=== PATIENT | male | born 1945 | race Caucasian/White ===

== ENCOUNTER 2018-10-28 16:07 | Observation (INO) | payer MEDICARE, OTHER ==
[2018-10-28] MEDS ORDERED: Sodium Chloride 0.9% 10 ML Syringe FLUSH PRN (16:15)
--- NOTE | 2018-10-28 19:00 | HP ---
CHIEF COMPLAINT: Hyperglycemia. HISTORY OF PRESENT ILLNESS: This is a 73-year-old with known history of dementia who has been living at home with the assistance of his children. His daughter does check on him and gives his shot and medications around 4:30 each day, but they are not sure how he has been eating. He states he is cooking for himself, but he is not always that hungry. He had lost some weight like 12 pounds with his Soliqua medication at his last visit due to some concerns about appetite and oral intake. We decreased the Soliqua, but now his blood sugars are quite high like in the 400s at times. He has no pain. He denies any breathing problems. He states he has no concerns. His lowest blood sugar was 109. They were all checked in the afternoon. A couple of times his meter even just read high. He denies that he is having any hallucinations, but his daughter and son state that he still is seeing people that are not there. The patient was very cooperative and pleasant, but said to them "no I am not." Family do want to transition him over to an assisted living, but they do not think that he will be cooperative with that. We had met and discussed the plan to admit for observation status due to hyperglycemia, which we are doing today and transition to assisted living tomorrow. ALLERGIES: List includes niacin, ADRIANE inhibitors, and tetanus. MEDICATIONS: List is reviewed. He takes all medications at 4:30 in the afternoon. 1. Aricept 5 mg. 2. Soliqua 30 units daily. 3. Metformin 2000 once a day. 4. Norvasc 10 mg daily. 5. Hydrochlorothiazide. 6. Losartan 100-25.5 daily. 7. Pravachol 40 mg daily. 8. Seroquel 12.5 daily. 9. Toprol 12.5 daily. 10.B12 1000 mcg daily. PAST MEDICAL HISTORY: Includes coronary artery disease. Did have chest pain and an CO back in 1995, but there were collaterals. He has not had any problems since. Essential hypertension, hyperlipidemia, mixed dementia. Even since 2017, trial of Namenda in early 2019 caused hallucinations, but they continued even after stopping. On Aricept now couple of years. Obesity, controlled type 2 diabetes with hyperglycemia, and neuropathy on long-term insulin use. SOCIAL HISTORY: The patient is . [place] He is a nonsmoker, nondrinker. His daughter does live nearby. He has another son in the [place] area and a daughter who lives out of state. 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 FAMILY HISTORY: His father is , he did have a heart attack and some heart disease. He had a sister who of diabetes and heart disease. Mother had arthritis problems. REVIEW OF SYSTEMS: General: The patient offers no concerns. Did gain though 4 pounds in 1 month. HEENT: No sore throat. Cardiac: No chest pain. No palpitations. Respiratory: No cough. No shortness of breath. : No dysuria. GI: No abdominal pain, constipation, or diarrhea. Otherwise, all systems reviewed and found to be negative unless otherwise stated. PHYSICAL EXAMINATION: Vital Signs: The patient was seen also at [facility]. His weight there was 83.4 kg. His blood pressure was 110/52, respiratory rate 16, O2 of 96 on room air, pulse 83, blood pressure 110/52, and temperature 98.6. General: He is in no acute distress. Heart: Regular rate and rhythm. S1, S2 without murmur. Lungs: Lung sounds are clear to auscultation bilaterally without crackles or wheezes. Abdomen: Nondistended, nontender. Extremities: Warm and dry. No edema. Mental Status: He is alert, he is orientated x3. In asking his memory questions, the patient cannot remember what he ate or if he had anything to eat today. He looks to his daughter and son to answer more complex questions. Other questions he will just answer with a yes or no. LABORATORY DATA: Lab work done through the clinic today did show urine test negative for infection. He had a few bacteria noted. A1c 7.3, glucose 153, BUN 16, creatinine 1.06, sodium 140, potassium 4.2, chloride 103, bicarb 27. ASSESSMENT AND PLAN: 1. Mixed dementia with hallucinations. He is not currently having any behavioral disturbances, but concern is that he might not transition to assisted living with family. However, he has been agreeable today and hopefully can transition safely to assisted living tomorrow. 2. Hyperglycemia. Diabetes is actually under better control, but we need to do some q.i.d. checks and make sure he has good oral intake because he would be at risk for lows. 3. Coronary artery disease, stable. He is not having any angina. 4. Essential hypertension, controlled, on current medications. 5. Recent renal insufficiency. Kidney function has actually improved. We will hold off on any IV fluids. 6. Hallucinations. We will continue with Seroquel. He already got a dose today, but we will have another dose available tonight. 7. Hyperlipidemia. He will continue home medications. PLAN: At this point, the patient is admitted for observation status with anticipation to transition to assisted living tomorrow. Mortician Investigator are aware. He is a code level 1. He is in need of just a short-term stay, so no DVT prophylaxis was ordered. MKA: 10/28/2018 17:12:28 MODL: 10/28/2018 18:50:47 /[id number]
[2018-10-28] MEDS ORDERED: QUEtiapine 25 MG Tab PO SCH (20:00)
[2018-10-29] MEDS ORDERED: INSULIN GLARGINE SQ SCH (08:00)
[2018-10-29] MEDS ORDERED: amLODIPine 5 MG Tab PO SCH (08:00)
[2018-10-29] MEDS ORDERED: LIXISENATIDE SQ SCH (08:00)
[2018-10-29] MEDS ORDERED: Losartan 50 MG Tab PO SCH (08:00)
[2018-10-29] MEDS ORDERED: Hydrochlorothiazide 12.5 MG Cap PO SCH (08:00)
[2018-10-29] MEDS ORDERED: Cyanocobalamin (Vitamin B12) 1,000 MCG Tab PO SCH (08:00)
[2018-10-29] MEDS ORDERED: Metoprolol Succinate 25 MG Tab.ER PO SCH (08:00)
[2018-10-29] MEDS ORDERED: QUEtiapine 25 MG Tab PO PRN (09:09)
[2018-10-29] MEDS ORDERED: Pravastatin Sodium 40 MG PO SCH (16:30)
[2018-10-29] MEDS ORDERED: Donepezil 5 MG Tab PO SCH (20:00)
--- NOTE | 2018-10-30 01:42 | DISCH ---
PRIMARY DISCHARGE DIAGNOSIS: Type 2 diabetes, controlled with hyperglycemia, on long-term insulin therapy, with neuropathy. SECONDARY DISCHARGE DIAGNOSES: 1. Mixed dementia with hallucinations. 2. Coronary artery disease, stable without angina. 3. Essential hypertension, controlled. 4. Hyperlipidemia. REASON FOR ADMISSION: On the date of admission, this 73-year-old male came into the clinic with his son and daughter. He had been having some higher blood sugars at home up to the 400 and the machine reading high since decreasing his Soliqua, which was done due to decreased appetite, poor oral intake. He has dementia. His family checks on him and gives him his medications every day around 4:30. They are not sure what he is always eating. The patient no longer drives. He did become angry with his family about that last year. They are hoping to transition him into assisted living, but he needs to have blood sugar stabilized and be able to give himself his shot. HOSPITAL COURSE: The patient was admitted. Blood sugars here were monitored and actually were quite excellent at 106 through 143. He was eating well. He was up wondering, stating he needed to get home and feed the cows. He did not know where he was at. He did finally remember that he was in the town [facility]. He states he recognized me, but could not give me his name. He did have the injection, he was able to give himself, but the nurse did have him push the button on the Soliqua this morning. Otherwise, cognitive eval was requested and is pending at the time of this discharge; however, if it is not completed, we do know that he already does meet criteria for needing 24-hour supervision. On discharge, the patient will have home health. The [id number] encounter occurred with me today on 10/29/2018. Primary need for home health is really for nursing, for teaching and assessments of giving daily injections at assisted living. This is needed due to uncontrolled diabetes. The patient is homebound due to his cognitive impairment. He really does require the assist of another person to leave his home. I will periodically review his plan of care. PHYSICAL EXAMINATION: Vital Signs: His discharge exam did include vitals of temperature 97; pulse 66; blood pressure 134/64; respiratory rate 20; and O2 of 92% on room air, previously 98%. General: He was in no acute distress. Heart: Regular rate and rhythm noted. Lungs: Lung sounds were clear to auscultation bilaterally without crackles or wheezes. Abdomen: Nondistended, nontender. Extremities: Warm and dry. No edema. Mental Status: On orientation questions, the patient was completely disoriented this morning; unable to answer the season, he said it was spring. He also did not remember any of the events from yesterday, being in the clinic and being admitted. He was polite, cooperative, easily redirected. DISCHARGE PLANS AND INSTRUCTIONS: He is going over to [facility] for further cares. In the next week, he will have q.i.d. Accu-Cheks to get a better idea of his blood sugars. He will be on his same medications with the exception of his Seroquel that will be available t.i.d. p.r.n. if needed for anxiety. All medications will be shifted from 4:00 p.m. to a.m. or p.m. dosing. MKA: 10/29/2018 10:13:44 MODL: 10/30/2018 01:37:12 /[id number]
[2018-10-30] MEDS ORDERED: amLODIPine 10 MG Tab PO SCH (08:00)
== END 2018-10-29 13:45 | disposition home health service (06) ==
LOC: VM.MS 16:07
PROVIDERS: ADMIT Internal Medicine; ATTEND Internal Medicine
DX: E11.65 Type 2 diabetes mellitus with hyperglycemia (principal); E11.40 Type 2 diabetes mellitus with diabetic neuropathy, unspecified; F03.90 Unspecified dementia, unspecified severity, without behavioral disturbance, psychotic disturbance, mood disturbance, and anxiety; R44.2 Other hallucinations; I25.10 Atherosclerotic heart disease of native coronary artery without angina pectoris; I10 Essential (primary) hypertension; E78.5 Hyperlipidemia, unspecified; Z88.7 Allergy status to serum and vaccine; Z88.8 Allergy status to other drugs, medicaments and biological substances; Z79.4 Long term (current) use of insulin; Z79.899 Other long term (current) drug therapy
CPT/HCPCS: 82962; A9270; G0378

== ENCOUNTER 2020-12-30 05:25 | Inpatient (IN) | payer MEDICARE, OTHER ==
[2020-12-30] MEDS ORDERED: Sodium Chloride 0.9% 10 ML Syringe FLUSH PRN (05:46)
[2020-12-30] MEDS ORDERED: Sodium Chloride 0.9% 1,000 ML IV ONE (05:46)
[2020-12-30] MEDS ORDERED: cefTRIAXone 2 GM Vial IV ONE (05:46)
[2020-12-30] MEDS ORDERED: Acetaminophen 650 MG Supp RECTAL ONE (05:50)
--- NOTE | 2020-12-30 06:11 | EDM.PDOC ---
ED HPI GENERAL MEDICAL PROBLEM - General Chief Complaint: Fever Stated Complaint: Fever, hypoxia Time Seen by Provider: 12/30/20 05:40 Source of Information: Reports: EMS, Intermediate Records History Limitations: Reports: Altered Mental Status - History of Present Illness INITIAL COMMENTS - FREE TEXT/NARRATIVE: Adiel is a 75 year old from the [facility] who presents per EMS with fever, hypoxia. Staff noted a fever earlier this evening of 104. Gave him tylenol but now continues to have a temp of 103. Does have Alzheimer's Dementia, is lethargic so does not answer any questions here. Staff from the long term did not report any vomiting, diarrhea, or cough. Onset: Today Duration: Hour(s):, Constant Location: Reports: Generalized Associated Symptoms: Reports: Confusion (chronic in nature), Fever/Chills, Malaise. Denies: Cough, Nausea/Vomiting, Shortness of Breath Treatments BODY BUILDER: Reports: Acetaminophen - Related Data Allergies Allergy/AdvReac Type Severity Reaction Status Date / Time ADRIANE Inhibitors Allergy Other Verified 12/30/20 06:26 niacin Allergy Hives Verified 12/30/20 06:26 tetanus immune globulin Allergy Rash Verified 12/30/20 06:26 Home Meds: Home Meds Cyanocobalamin (Vitamin B-12) [Vitamin B-12] 1,000 mcg PO DAILY 10/28/18 [History] Donepezil [Aricept] 10 mg PO BEDTIME 10/28/18 [History] Insulin Glargine/Lixisenatide [Soliqua 100 Unit-33 Mcg/ml Pen] 30 units SQ DAILY 10/28/18 [History] Losartan/Hydrochlorothiazide [Hyzaar 100-25 Tablet] 0.5 tab PO DAILY 10/28/18 [History] Metoprolol Succinate [Toprol Xl] 12.5 mg PO DAILY 10/28/18 [History] Pravastatin [Pravachol] 40 mg PO DAILY 10/28/18 [History] QUEtiapine [SEROquel] 12.5 mg PO BEDTIME 10/28/18 [History] amLODIPine [Norvasc] 10 mg PO DAILY 10/28/18 [History] metFORMIN [Glucophage XR] 2,000 mg PO DAILY 10/28/18 [History] QUEtiapine [SEROquel] 12.5 mg PO TID PRN #30 tablet 10/29/18 [Rx] Past Medical History HEENT History: Reports: None Cardiovascular History: Reports: [place] Gastrointestinal History: Reports: None Genitourinary History: Reports: None Musculoskeletal History: Reports: None Neurological History: Reports: Alzheimers Disease Other Neuro History: dementia Psychiatric History: Reports: None Endocrine/Metabolic History: Reports: Diabetes, Type II Dermatologic History: Reports: None - Past Surgical History HEENT Surgical History: Reports: Tonsillectomy Social & Family History - Tobacco Use Tobacco Use Status *Q: Unknown Ever Used Tobacco - Caffeine Use Caffeine Use: Reports: Coffee ED ROS GENERAL - Review of Systems Review Of Systems: Unable To Obtain Reason Not Obtained: patient lethargic, has dementia Constitutional: Reports: Fever, Weakness GI/Abdominal: Denies: Diarrhea, Vomiting ED EXAM, SEPSIS - Physical Exam Exam: See Below Exam Limited By: Altered Mental Status General Appearance: WD/WN, No Apparent Distress, Lethargic Ears: Normal External Exam, Normal TMs Nose: Normal Inspection, Normal Mucosa, No Blood Throat/Mouth: Normal Inspection, Other (mucous membranes are dry) Head: Normocephalic Neck: Normal Inspection, Supple, Non-Tender Respiratory/Chest: Decreased Breath Sounds, Other (tachypnea) Cardiovascular: Tachycardia GI/Abdominal Exam: Normal Bowel Sounds, Non-Tender, Other (semi-firm) Extremities: Normal Inspection, No Pedal Edema Neurological: Disoriented Skin: Warm, Dry Course - Vital Signs Last Recorded V/S: Last Vital Signs Temp 104.8 F H 12/30/20 06:05 Pulse Resp BP Pulse Ox - Orders/Labs/Meds Orders: Active Orders 24 hr Category Date Time Status Patient Status Manage Transfer [TRANSFER] Routine ADT 12/30/20 08:12 Active Blood Pressure Mgt: Sepsis [RC] Q15MX2 Care 12/30/20 05:47 Active EKG Documentation Completion [RC] STAT Care 12/30/20 05:46 Active CULTURE BLOOD [BC] Stat Lab 12/30/20 06:13 Received CULTURE BLOOD [BC] Stat Lab 12/30/20 06:17 Received LACTIC ACID [CHEM] Stat Lab 12/30/20 09:15 Ordered REFLEX LACTIC ACID YES OR NO [CHEM] Routine Lab 12/30/20 06:51 Received Azithromycin [Zithromax] 500 mg Med 12/30/20 08:05 Active Sodium Chloride 0.9% [Normal Saline (AdvBag)] 250 ml IV STAT Sodium Chloride 0.9% [Normal Saline] 1,000 ml Med 12/30/20 06:30 Active IV ASDIRECTED Sodium Chloride 0.9% [Saline Flush] Med 12/30/20 05:46 Active 10 ml FLUSH ASDIRECTED PRN Blood Culture x2 Reflex Set [OM.PC] Stat Ot 12/30/20 05:47 Ordered Saline Lock Insert [OM.PC] Stat Ot 12/30/20 05:47 Ordered Severe Sepsis Onset Time [OM.PC] Stat Ot 12/30/20 05:47 Ordered Medication Orders Sodium Chloride (Normal Saline) 1,000 mls @ 150 mls/hr IV ASDIRECTED DAWOOD Last Admin: 12/30/20 06:15 Dose: 150 mls/hr Documented by: [email or web address] Azithromycin 500 mg/ Sodium (Chloride) 250 mls @ 250 mls/hr IV STAT ONE Stop: 12/30/20 09:04 Sodium Chloride (Sodium Chloride 0.9% 10 Ml Syringe) 10 ml FLUSH ASDIRECTED PRN PRN Reason: Keep Vein Open Labs: Laboratory Tests 12/30/20 12/30/20 12/30/20 Range/Units 06:05 06:13 06:13 WBC 4.6 (4.0-10.0) x10^3/uL RBC 5.26 (4.5-6.0) x10^6/uL Hgb 15.2 (14.0-18.0) g/dL Hct 44.7 (40.0-52.0) % MCV 85.0 (78.0-93.0) fL MCH 28.9 (26.0-32.0) pg MCHC 34.0 (32.0-36.0) g/dL RDW Coeff of Ramon 14.0 (10.0-15.0) % Plt Count 239 (130-400) x10^3/uL Add Manual Diff Yes Neutrophils % (Manual) 58 (50-80) % Band Neutrophils % 18 H (0-6) % Lymphocytes % (Manual) 18 L (25-50) % Monocytes % (Manual) 6 (2-11) % Absolute Neutrophils 3.5 (1.8-7.7) x10^3/uL Lymphocytes # (Manual) 0.8 L (1.0-4.8) x10^3/uL Monocytes # (Manual) 0.3 (0.0-0.8) x10^3/uL Platelet Estimate Adequate Sodium 149 H (136-145) mmol/L Potassium 3.8 (3.5-5.1) mmol/L Chloride 112 H (98-107) mmol/L Carbon Dioxide 22 (21-32) mmol/L Anion Gap 18.8 H (5-15) mmol/L BUN 56 H (7-18) mg/dL Creatinine 2.7 H (0.70-1.30) mg/dL Est Cr Clr Drug Dosing TNP Estimated GFR (MDRD) 23 Glucose 273 H (70-99) mg/dL Lactic Acid (0.4-2.0) mmol/L Calcium 7.6 L (8.5-10.1) mg/dL Corrected Calcium 8.6 (8.5-10.1) mg/dL Total Bilirubin 0.6 (0.2-1.0) mg/dL AST 11 L (15-37) U/L ALT 15 L (16-63) U/L Alkaline Phosphatase 67 (46-116) U/L C-Reactive Protein 9.3 H (<=0.9) mg/dL Total Protein 5.9 L (6.4-8.2) g/dL Albumin 2.7 L (3.4-5.0) g/dL Globulin 3.2 Albumin/Globulin Ratio 0.84 Procalcitonin (0.1-0.50) ng/mL Urine Color (YELLOW) Urine Appearance (CLEAR) Urine pH (5.0-8.0) Ur Specific [place] Urine Protein (NEGATIVE) mg/dL Urine Glucose (UA) (NEGATIVE) mg/dL Urine Ketones (NEGATIVE) mg/dL Urine Occult Blood (NEGATIVE) Urine Nitrite (NEGATIVE) Urine Bilirubin (NEGATIVE) Urine Urobilinogen (0.2) EU/dL Ur Leukocyte Esterase (NEGATIVE) Urine RBC (NOT SEEN) /HPF Urine WBC (NOT SEEN) /HPF Ur Squamous Epith Cells (NOT SEEN) /HPF Urine Bacteria (NOT SEEN) /HPF Urine Mucus (NOT SEEN) /LPF Influenza Type A RNA Negative (NEGATIVE) Influenza Type B RNA Negative (NEGATIVE) SARS-CoV-2 RNA (MARY) Negative (NEGATIVE) 12/30/20 12/30/20 12/30/20 Range/Units 06:13 06:13 06:15 WBC (4.0-10.0) x10^3/uL RBC (4.5-6.0) x10^6/uL Hgb (14.0-18.0) g/dL Hct (40.0-52.0) % MCV (78.0-93.0) fL MCH (26.0-32.0) pg MCHC (32.0-36.0) g/dL RDW Coeff of Ramon (10.0-15.0) % Plt Count (130-400) x10^3/uL Add Manual Diff Neutrophils % (Manual) (50-80) % Band Neutrophils % (0-6) % Lymphocytes % (Manual) (25-50) % Monocytes % (Manual) (2-11) % Absolute Neutrophils (1.8-7.7) x10^3/uL Lymphocytes # (Manual) (1.0-4.8) x10^3/uL Monocytes # (Manual) (0.0-0.8) x10^3/uL Platelet Estimate Sodium (136-145) mmol/L Potassium (3.5-5.1) mmol/L Chloride (98-107) mmol/L Carbon Dioxide (21-32) mmol/L Anion Gap (5-15) mmol/L BUN (7-18) mg/dL Creatinine (0.70-1.30) mg/dL Est Cr Clr Drug Dosing Estimated GFR (MDRD) Glucose (70-99) mg/dL Lactic Acid 3.8 H* (0.4-2.0) mmol/L Calcium (8.5-10.1) mg/dL Corrected Calcium (8.5-10.1) mg/dL Total Bilirubin (0.2-1.0) mg/dL AST (15-37) U/L ALT (16-63) U/L Alkaline Phosphatase (46-116) U/L C-Reactive Protein (<=0.9) mg/dL Total Protein (6.4-8.2) g/dL Albumin (3.4-5.0) g/dL Globulin Albumin/Globulin Ratio Procalcitonin 44.56 H (0.1-0.50) ng/mL Urine Color Yellow (YELLOW) Urine Appearance Clear (CLEAR) Urine pH 7.0 (5.0-8.0) Ur Specific [place] 1.020 Urine Protein Trace H (NEGATIVE) mg/dL Urine Glucose (UA) Negative (NEGATIVE) mg/dL Urine Ketones Trace H (NEGATIVE) mg/dL Urine Occult Blood Negative (NEGATIVE) Urine Nitrite Negative (NEGATIVE) Urine Bilirubin Small H (NEGATIVE) Urine Urobilinogen 0.2 (0.2) EU/dL Ur Leukocyte Esterase Negative (NEGATIVE) Urine RBC 0-5 (NOT SEEN) /HPF Urine WBC Not seen (NOT SEEN) /HPF Ur Squamous Epith Cells Not seen (NOT SEEN) /HPF Urine Bacteria Not seen (NOT SEEN) /HPF Urine Mucus Rare H (NOT SEEN) /LPF Influenza Type A RNA (NEGATIVE) Influenza Type B RNA (NEGATIVE) SARS-CoV-2 RNA (MARY) (NEGATIVE) Meds: Medications Generic Name Dose Route Start Last Admin Trade Name Freq PRN Reason Stop Dose Admin Sodium Chloride 1,000 mls @ 150 mls/hr 12/30/20 06:30 12/30/20 06:15 Normal Saline IV 150 mls/hr ASDIRECTED DAWOOD Administration Azithromycin 500 mg/ Sodium 250 mls @ 250 mls/hr 12/30/20 08:05 Chloride IV 12/30/20 09:04 STAT ONE Sodium Chloride 10 ml 12/30/20 05:46 Sodium Chloride 0.9% 10 Ml Syringe FLUSH ASDIRECTED PRN Keep Vein Open Discontinued Medications Generic Name Dose Route Start Last Admin Trade Name Freq PRN Reason Stop Dose Admin Acetaminophen 650 mg 12/30/20 05:50 12/30/20 06:05 Acetaminophen 650 Mg Supp RECTAL 12/30/20 05:51 650 mg NOW ONE Administration Ceftriaxone Sodium 2 gm 12/30/20 05:46 12/30/20 06:16 Ceftriaxone 2 Gm Vial IV 12/30/20 05:47 2 gm STAT ONE Administration Sodium Chloride 1,000 mls @ 999 mls/hr 12/30/20 05:46 12/30/20 05:45 Normal Saline IV 12/30/20 06:46 999 mls/hr BOLUS ONE Administration Protocol - Re-Assessments/Exams Free Text/Narrative Re-Assessment/Exam: 12/30/20 07:00 Was called with lactic acid of 3.8. Patient resting quietly. Waiting on further labs and xray report. [id number]- Called Dr. Howard with report on patient. Temp down to 101. Chest xray shows groundglass opacity, possible multilobar viral pneumonia. 12/30/20 0800-Procalcitonin is high, zithromax ordered as well. Departure - Departure Time of Disposition: 08:17 Disposition: Admitted As Inpatient 64 Condition: Fair Clinical Impression: Pneumonia, Sepsis - Discharge Information *PRESCRIPTION DRUG MONITORING PROGRAM REVIEWED*: No *COPY OF PRESCRIPTION DRUG MONITORING REPORT IN PATIENT JUVE: No Forms: ED Department Discharge Sepsis Event Note (ED) - Focused Exam Vital Signs: Vital Signs Temp 12/30/20 06:05 104.8 F H - My Orders Last 24 Hours: My Active Orders 12/30/20 05:46 EKG Documentation Completion [RC] STAT Sodium Chloride 0.9% [Saline Flush] 10 ml FLUSH ASDIRECTED PRN 12/30/20 05:47 Blood Pressure Mgt: Sepsis [RC] Q15MX2 Blood Culture x2 Reflex Set [OM.PC] Stat Saline Lock Insert [OM.PC] Stat Severe Sepsis Onset Time [OM.PC] Stat 12/30/20 06:13 CULTURE BLOOD [BC] Stat 12/30/20 06:17 CULTURE BLOOD [BC] Stat 12/30/20 06:30 Sodium Chloride 0.9% [Normal Saline] 1,000 ml IV ASDIRECTED 12/30/20 06:51 REFLEX LACTIC ACID YES OR NO [CHEM] Routine 12/30/20 08:05 Azithromycin [Zithromax] 500 mg Sodium Chloride 0.9% [Normal Saline (AdvBag)] 250 ml IV STAT 12/30/20 08:12 Patient Status Manage Transfer [TRANSFER] Routine - Assessment/Plan Last 24 Hours: My Active Orders 12/30/20 05:46 EKG Documentation Completion [RC] STAT Sodium Chloride 0.9% [Saline Flush] 10 ml FLUSH ASDIRECTED PRN 12/30/20 05:47 Blood Pressure Mgt: Sepsis [RC] Q15MX2 Blood Culture x2 Reflex Set [OM.PC] Stat Saline Lock Insert [OM.PC] Stat Severe Sepsis Onset Time [OM.PC] Stat 12/30/20 06:13 CULTURE BLOOD [BC] Stat 12/30/20 06:17 CULTURE BLOOD [BC] Stat 12/30/20 06:30 Sodium Chloride 0.9% [Normal Saline] 1,000 ml IV ASDIRECTED 12/30/20 06:51 REFLEX LACTIC ACID YES OR NO [CHEM] Routine 12/30/20 08:05 Azithromycin [Zithromax] 500 mg Sodium Chloride 0.9% [Normal Saline (AdvBag)] 250 ml IV STAT 12/30/20 08:12 Patient Status Manage Transfer [TRANSFER] Routine
[2020-12-30] MEDS: Sodium Chloride 0.9% 1,000 ML IV SCH ×3 (06:15→20:57)
[2020-12-30 06:58] LABS: CHLORIDE,CL 112 mmol/L (98-107); SODIUM,NA 149 mmol/L (136-145)
[2020-12-30 07:00] LABS: ANION GAP 18.8 mmol/L (5-15)
[2020-12-30 07:14] LABS: CORONAVIRUS COVID-19 NAA NEGATIVE (NEGATIVE)
[2020-12-30] MEDS ORDERED: Azithromycin 500 MG in Sodium Chloride 0.9% 250 ML IV ONE (08:05)
--- NOTE | 2020-12-30 08:07 | CR ---
[id number] RAD/RAD Chest PA or AP 1V EXAM: SINGLE VIEW CHEST. INDICATION: FEVER COMPARISON: NO PREVIOUS SIMILAR EXAM IS AVAILABLE FINDINGS: A right upper lobe infiltrate is seen The left lung is clear The cardiac silhouette is enlarged The aorta is tortuous IMPRESSION: RIGHT UPPER LOBE PNEUMONIA FOLLOW-UP SUGGESTED Jose Manuel Layne MD 12/30/20 0806 Thank you for allowing us to participate in the care of your patient.
[2020-12-30] MEDS ORDERED: QUEtiapine 25 MG Tab PO PRN (09:58)
[2020-12-30] MEDS: Heparin Sodium 5,000 Units/ML Vial SUBCUT SCH ×2 (10:32→18:21)
[2020-12-30] MEDS: Piperacillin/Tazobactam 2.25 GM in Sodium Chloride 0.9% 100 ML IV SCH ×3 (10:45→18:34)
[2020-12-30] MEDS ORDERED: Flumazenil 0.1 MG/ML 5 ML MDV IVPUSH PRN (10:54)
[2020-12-30] MEDS ORDERED: 50% Dextrose in Water 50 ML Syringe IVPUSH PRN (11:19)
[2020-12-30] MEDS ORDERED: Glucagon,Human Recombinant 1 MG Vial IM PRN (11:19)
[2020-12-30] MEDS: Insulin Glarg,Human.Rec.Analog 100 Unit/ML SUBCUT SCH (13:00)
--- NOTE | 2020-12-30 13:05 | HP ---
CHIEF COMPLAINT: Fever and vomiting. HISTORY OF PRESENT ILLNESS: This is a 75-year-old male with dementia, who lives at [facility], who had not been having any cough or illness and suddenly vomited last evening per nursing staff and then got some Tylenol for about a 101 temp, but unfortunately his temp went up to 104.8 with a heart rate of 150, respiratory rate of 40, O2 sat 89%, and he is not normally on oxygen. He was responsive to painful stimuli. He was brought over. He was found to have a right middle lobe pneumonia. He was started on IV Rocephin and Zithromax. All of the history is from the assisted paperwork as the patient is unable to give me any details. ALLERGIES: Niacin, ADRIANE inhibitors, and tetanus. MEDICATION LIST: Does currently include Trulicity 0.5 once weekly on Wednesdays, Lantus 25 units daily, Lasix 20 mg daily, Ativan 0.5 four times a day as needed for agitation, Zyprexa 5 mg twice daily, Depakote 250 twice daily, Seroquel 25 mg at bedtime, nystatin powder if needed, Senokot, metformin 2 g daily, Tums, Dulcolax, Robitussin, Imodium all p.r.n., melatonin as needed for sleep, vitamin D, metoprolol 12.5 daily, amlodipine 10 mg daily. PAST MEDICAL HISTORY: Includes dementia, vascular, with behavioral disturbance. He has been in [facility] since about 04/2020 when he had developed COVID and was hospitalized prior, essential hypertension, hyperlipidemia, coronary artery disease, type 2 diabetes. SURGICAL HISTORY: The patient has had a tonsillectomy and foot surgery for 1st metatarsal. FAMILY HISTORY: Both parents are . SOCIAL HISTORY: He is a former smoker. He is . He has 4 children, one of whom lives locally, Kathie Moreno. REVIEW OF SYSTEMS: Unobtainable from this patient. PHYSICAL EXAMINATION: Vital Signs: He has currently a temp 101.9, pulse 135, blood pressure 105/64, respiratory rate 22, O2 of 92% on 4 L. General: He is in no acute distress. He is resting comfortably in bed. He does arouse to some painful stimuli, but is mostly just sleeping. HEENT: His pupils are equal, round, reactive to light. His mouth appears dry. There is some brownish material in his [place]. Heart: Regular rate and rhythm with tachycardia. Lungs: Sounds are decreased because there is no extra respiratory effort, but he is no longer tachypneic. Abdomen: Has positive bowel sounds. Soft, nondistended, nontender. Extremities: Warm and dry. No edema. Mental Status: Unable to assess due to lethargy. LABORATORY DATA: White count 4.6, hemoglobin 15.2, platelets 239. Sodium 149, potassium 3.8, chloride 112, bicarb 22, BUN 56, creatinine up to 2.7. Last one normal. Glucose 273, lactic 3.8, calcium 7.6, bilirubin 0.6, AST 11, ALT 15, CRP 9.3, albumin 2.7, procalcitonin 44.5. UA: 0-5 rbc's and wbc's. Influenza negative. COVID negative. Chest x-ray includes right middle lobe infiltrate. ASSESSMENT: 1. Severe right middle lobe pneumonia. Blood culture sent. We will obtain a sputum culture. We will send urine for Legionella. This is a rather abrupt onset and it is unclear if the patient vomited and then caused an aspiration or his pneumonia happened first. At either rate, we will upgrade his antibiotics to intravenous Zosyn and continue with intravenous Zithromax. We will repeat lab work in the morning including a procalcitonin and we will repeat a lactic acid now after 3 hours. We will give him intravenous fluids for the sepsis. Currently, his blood pressure is good. 2. Type 2 diabetes. We will continue his insulin. We will hold his metformin. We will do q.i.d. Accu-Cheks. 3. Essential hypertension. We will hold the losartan and hydrochlorothiazide due to renal failure. I am going to continue with his metoprolol and amlodipine. 4. Hyperlipidemia. We will hold off on his Pravachol due to his decreased alertness. We will try to limit his pills as needed. 5. For his dementia, we will try to continue those home medications due to history of behaviors. 6. For deep vein thrombosis prophylaxis due to renal failure, he is on heparin. 7. Acute renal failure. This is due to sepsis. We will repeat lab work tomorrow. 8. Acute hypoxic respiratory failure likely due to pneumonia. We will continue with oxygen. 9. Palliative cares. 10.Severe sepsis due to pneumonia. PLAN: The condition is very guarded. The patient is very sick. We are treating him with IV antibiotics. Anticipate he will need at least a 2-night stay. residential was also updated on his admission. He is a code level 3. No CPR. MKA: 12/30/2020 09:59:35 MODL: 12/30/2020 12:53:03 /[id number] JUAN ANTONIO
[2020-12-30] MEDS ORDERED: Donepezil 5 MG Tab PO SCH (20:00)
[2020-12-30] MEDS: QUEtiapine 25 MG Tab PO SCH (20:47)
[2020-12-31] MEDS: Piperacillin/Tazobactam 2.25 GM in Sodium Chloride 0.9% 100 ML IV SCH ×3 (02:44→18:05)
[2020-12-31] MEDS: Heparin Sodium 5,000 Units/ML Vial SUBCUT SCH ×3 (02:44→17:17)
[2020-12-31] MEDS: LORazepam 2 MG/ML SDV IVPUSH PRN ×3 (03:03→18:04)
[2020-12-31] MEDS: Sodium Chloride 0.9% 1,000 ML IV SCH ×2 (03:35→11:13)
[2020-12-31 08:51] LABS: ANION GAP 18.2 mmol/L (5-15)
[2020-12-31] MEDS: Azithromycin 500 MG in Sodium Chloride 0.9% 250 ML IV SCH (08:58)
[2020-12-31] MEDS: Insulin Glarg,Human.Rec.Analog 100 Unit/ML SUBCUT SCH (09:19)
[2020-12-31] MEDS: amLODIPine 5 MG Tab PO SCH (09:22)
[2020-12-31] MEDS: Metoprolol Succinate 25 MG Tab.ER PO SCH (09:23)
[2020-12-31] MEDS: Dextrose 5% in Water 1,000 ML IV SCH (13:57)
[2020-12-31] MEDS ORDERED: Albuterol/Ipratropium 3.0-0.5 MG/3 ML Neb Soln NEB PRN (15:38)
[2020-12-31] MEDS: Acetaminophen 650 MG Supp RECTAL PRN ×2 (15:44→22:50)
[2020-12-31] MEDS: Albuterol/Ipratropium 3.0-0.5 MG/3 ML Neb Soln NEB SCH ×2 (19:51→22:46)
[2020-12-31] MEDS: QUEtiapine 25 MG Tab PO SCH (19:54)
--- NOTE | 2020-12-31 20:08 | PN ---
Progress Note for JESSICA CORRAL Date: 12/31/2020 Room #: VM.217 CHIEF COMPLAINT: Fever and vomiting. SUBJECTIVE: Hospital day #2 for a 75-year-old male patient admitted from a local [facility], who had been having fevers and vomiting at the [facility]. The patient's saturations were low in the emergency room and had a high respiratory rate. The patient was found to have a right middle lobe pneumonia. The patient was given Rocephin and Zithromax. The patient is unable to give any information during the interview today. Information is obtained from the EMR and nursing staff. REVIEW OF SYSTEMS: Unable to obtain due to the patient's condition. PHYSICAL EXAMINATION: Vital Signs: Temperature 98.6, pulse 123, blood pressure 112/81, respiratory rate 22, oxygen saturation 92% on 4 L. Skin: Intact, warm, and dry. Respiratory: Scattered rhonchi throughout, coarse lung sounds, congestion without wheezing. Cardiovascular: Regular rate and rhythm with tachycardia. Abdomen: Bowel sounds are active x4. Nondistended, soft. Extremities: No edema. Neurological: Unable to assess due to lethargy. General. Does not appear to be in any acute distress. LABORATORY STUDIES: 1. CBC: White blood cell count 12.2, hemoglobin 13.3, hematocrit 39.7, 11% bands. 2. CMP: Sodium 156, potassium 3.2, chloride 119, CO2 of 22, anion gap 18.2, BUN 56, creatinine 1.8, GFR 37, glucose 208, calcium 7.4, AST 13, ALT 13, alkaline phosphatase 70, total protein 6.0. 3. Procalcitonin 26.41. ASSESSMENT: 1. Severe right middle lobe pneumonia. 2. Type 2 diabetes. 3. Essential hypertension. 4. Hyperlipidemia. 5. Dementia without behavioral disturbance. 6. Acute renal failure. 7. Acute hypoxic respiratory failure likely due to pneumonia. 8. Palliative care. 9. Severe sepsis due to pneumonia. PLAN: Hospital day #2 for a 75-year-old male patient admitted from the [facility] for right middle lobe pneumonia. The patient's condition continues to be guarded. We will continue the patient on his current antibiotics. We will recheck laboratory work tomorrow. Continue with Tylenol for fevers. We will discontinue normal saline and start D5 for hypernatremia. We will watch sugars closely. Continue to monitor BUN and creatinine. We will recheck laboratory work tomorrow morning. The patient is a code level 3. No CPR. TB: 12/31/2020 12:12:20 MODL: 12/31/2020 19:54:09 /[id number]
[2020-12-31] MEDS ORDERED: LORazepam 2 MG/ML SDV IVPUSH ONE (22:17)
[2020-12-31] MEDS ORDERED: Morphine 2 MG/ML SYRINGE IVPUSH ONE (22:18)
[2021-01-01] MEDS: Heparin Sodium 5,000 Units/ML Vial SUBCUT SCH ×3 (02:12→18:00)
[2021-01-01] MEDS: Albuterol/Ipratropium 3.0-0.5 MG/3 ML Neb Soln NEB SCH ×6 (02:14→23:44)
[2021-01-01] MEDS: Piperacillin/Tazobactam 2.25 GM in Sodium Chloride 0.9% 100 ML IV SCH ×3 (02:14→18:33)
[2021-01-01] MEDS: Acetaminophen 650 MG Supp RECTAL PRN ×2 (03:09→11:29)
[2021-01-01] MEDS: Dextrose 5% in Water 1,000 ML IV SCH (07:29)
[2021-01-01 08:10] LABS: ANION GAP 18.1 mmol/L (5-15)
[2021-01-01] MEDS: Insulin Glarg,Human.Rec.Analog 100 Unit/ML SUBCUT SCH (08:54)
[2021-01-01] MEDS: amLODIPine 5 MG Tab PO SCH (09:03)
[2021-01-01] MEDS: Metoprolol Succinate 25 MG Tab.ER PO SCH (09:03)
[2021-01-01] MEDS: Azithromycin 500 MG in Sodium Chloride 0.9% 250 ML IV SCH (09:04)
[2021-01-01] MEDS: Morphine 2 MG/ML SYRINGE IVPUSH PRN ×3 (11:14→16:59)
[2021-01-01] MEDS: LORazepam 2 MG/ML SDV IVPUSH PRN ×2 (14:05→17:56)
--- NOTE | 2021-01-01 18:36 | PCM.SN.2 ---
- Free Text/Narrative Note: Called to bedside by BABATUNDE Wen due to worsening of patient condition. Patient unresponsive. RR upper 30's-40. Sats off oxygen upper 70's. Sats on oxygen 90% on 15L high flow. Will increase Morphine and Ativan doses for comfort. Family notified per RN. Will continue to monitor. Will update PCP. Time Documentation
[2021-01-01] MEDS: Morphine 4 MG/ML Syringe IVPUSH PRN ×2 (18:58→22:17)
[2021-01-01 19:08] LABS: PCO2 ARTERIAL,POC 36 mmHg (35-48)
--- NOTE | 2021-01-01 19:22 | PN ---
Progress Note for JESSICA CORRAL Date: 01/01/2021 Room #: [facility] CHIEF COMPLAINT: Fever and vomiting. SUBJECTIVE: Hospital day #3 for a 75-year-old male patient admitted from a local [facility] who had been having fevers and vomiting. The patient's oxygen saturations have remained low in the upper 80s. He is requiring 12 L high-flow nasal cannula. The patient was found to have a right middle lobe pneumonia, possibly due to aspiration pneumonia. The patient continues on Rocephin and Zithromax. The patient continues to be very obtunded. Information is obtained from the EMR and nursing staff. The patient continues to have fevers ranging anywhere from 101 to 103. He is being given rectal Tylenol due to his altered mental status. REVIEW OF SYSTEMS: Unable to obtain due to patient's condition. PHYSICAL EXAMINATION: Vital Signs: Temperature 99.8, pulse 134, blood pressure 142/83, respiratory rate 50, and oxygen saturation 98% on 15 L. Skin: Intact, warm, and dry. Respiratory: Coarse rhonchi throughout, congestion of upper lung broderick without wheezing. Cardiovascular: Regular rate and rhythm with tachycardia. Abdomen: Bowel sounds are hypoactive x4. Nondistended. Soft. Extremities: No edema. Neurological: Unable to assess due to lethargy/obtunded. General: The patient does not appear to be in any acute distress. LABORATORY STUDIES: 1. CBC: White blood cell count 12.7, hemoglobin 13.3, hematocrit 36.9, and platelets 223,000, 14% bands. 2. CMP: Sodium 158, potassium 3.1, chloride 119, CO2 of 24, anion gap 18.1, BUN 47, creatinine 1.8, glucose 283, calcium 7.6, ALT 15, AST 18, and protein 6.2. 3. Lactic acid 2.8. ASSESSMENT: 1. Severe right middle lobe pneumonia. 2. Type 2 diabetes. 3. Essential hypertension. 4. Hyperlipidemia. 5. Dementia without behavioral disturbance. 6. Acute renal failure. 7. Acute hypoxic respiratory failure, likely due to pneumonia. 8. Palliative care. 9. Severe sepsis due to pneumonia. PLAN: Hospital day #3 for a 75-year-old male patient admitted from a local [facility] for right middle lobe pneumonia. The patient's condition is grave and guarded. He is requiring max oxygen. May consider BiPAP. We will continue on D5 for hypernatremia. Continue with the same antibiotics. Unable to obtain sputum culture. Continue with rectal Tylenol for fevers. Long discussion was held with the patient's daughter at bedside today regarding the patient's condition. She has opted to wait for the PCP to return tomorrow before making any medical decisions. The patient continues to be a code level 3. No CPR. TB: 01/01/2021 16:27:00 MODL: 01/01/2021 18:19:50 /[id number]
[2021-01-01] MEDS: QUEtiapine 25 MG Tab PO SCH (20:58)
[2021-01-02] MEDS: Heparin Sodium 5,000 Units/ML Vial SUBCUT SCH (01:34)
[2021-01-02] MEDS: LORazepam 2 MG/ML SDV IVPUSH PRN ×7 (01:35→19:15)
[2021-01-02] MEDS: Piperacillin/Tazobactam 2.25 GM in Sodium Chloride 0.9% 100 ML IV SCH (02:38)
[2021-01-02] MEDS: Dextrose 5% in Water 1,000 ML IV SCH (03:11)
[2021-01-02] MEDS: Albuterol/Ipratropium 3.0-0.5 MG/3 ML Neb Soln NEB SCH ×5 (03:21→19:02)
[2021-01-02] MEDS ORDERED: Potassium Chloride Riders 20 MEQ in Premix Bag 1 BAG IV ONE ×2 (07:08→09:00)
[2021-01-02 07:50] LABS: ANION GAP 20.4 mmol/L (5-15)
[2021-01-02] MEDS: Azithromycin 500 MG in Sodium Chloride 0.9% 250 ML IV SCH (08:08)
--- NOTE | 2021-01-02 08:08 | CR ---
[id number] RAD/RAD Chest PA or AP 1V EXAM: RAD Chest PA or AP 1V INDICATION: HYPOXIA. PATIENT ON BIPAP. COMPARISON: December 30, 2020. DISCUSSION: Cardiomediastinal silhouette is stable in size and contour. Stable opacification overlying the lungs bilaterally, right greater than left. No pneumothorax or pleural effusion. IMPRESSION: Stable chest. Yony Williamson DO 01/02/21 0806 Thank you for allowing us to participate in the care of your patient.
[2021-01-02] MEDS: Metoprolol Succinate 25 MG Tab.ER PO SCH (08:09)
[2021-01-02] MEDS: amLODIPine 5 MG Tab PO SCH (08:09)
[2021-01-02] MEDS: Insulin Glarg,Human.Rec.Analog 100 Unit/ML SUBCUT SCH (08:22)
[2021-01-02] MEDS ORDERED: Atropine 1% Ophth Soln 5 ML BOTTLE SL PRN (08:49)
[2021-01-02] MEDS ORDERED: Ondansetron 4 MG/2 ML SDV IVPUSH PRN (08:49)
[2021-01-02] MEDS ORDERED: Lidocaine 2% Viscous Solution 15 ML Cup PO PRN (08:49)
[2021-01-02] MEDS ORDERED: HYDROmorphone 1 MG/ML Syringe IVPUSH PRN (08:51)
[2021-01-02] MEDS: HYDROmorphone 1 MG/ML Syringe IVPUSH PRN ×4 (16:50→20:00)
--- NOTE | 2021-01-02 22:36 | PCM.DCSUM1 ---
Discharge Summary - Hospital Course Free Text/Narrative:: 75 yo with underlying dementia and diabetes was admitted on 12/30 after an acute onset of fever and vomiting at [facility]. Had not been ill earlier in the day. No report of cough but CXR showed multilobar infiltrate and IV rocephin was given and then IV Zosyn and Zithromax were ordered to continue. COVID and influenza testing negative. Procalcitonin significantly elevated along with lactic acid but these things did improve. WBC worsened. He had renal failure on admit which improved with fluids but then worsened again today. His IV fluids were changed to D5 due to Hypernatremia. Blood sugars were more elevated today. Blood cultures negative. Sputum sample was not adequate. His fever initially improved but unfortunately yesterday his fever returned and his respiratory status worsened. Repeat CXR continued to show the pneumonia but no fluid over load. He had ABG confirming hypoxia and he was started on bipap which he tolerated although he was unresponsive and with his medina it seems that he has quite a bit of a leak. This AM his daughter is at bedside. We discussed goals of care. She felt her dad wouldn't want this and decision was made to stop antibiotics and acute treatments and focus on comfort cares. He had already received morphine but due to renal failure I did switch to dilaudid and he also already had ativan ordered. He wasn't able to take any oral meds. I then called his son who agreed and was coming to see him also today. We decided to switch to the high flow for comfort and he tolerated that until the time when his family arrived and was at the bedside and then the high flow as discontinued and he his symptoms were managed with end of life medications. Iais time of was 2022. HPI Initial Comments: Admitted with fever and vomiting. - Discharge Data Discharge Date: 01/02/21 Discharge Disposition: 20 Condition: - Referral to Home Health Primary Care Physician: Brittni Howard, DO - Discharge Diagnosis/Problem(s) (1) Acute renal failure SNOMED Code(s): 44484046 ICD Code: N17.9 - ACUTE KIDNEY FAILURE, UNSPECIFIED Status: Acute Priority: High Qualifiers: Acute renal failure type: unspecified Qualified Code(s): N17.9 - Acute kidney failure, unspecified (2) Pneumonia SNOMED Code(s): 643380926 ICD Code: J18.9 - PNEUMONIA, UNSPECIFIED ORGANISM Status: Acute Priority: High Qualifiers: Pneumonia type: aspiration pneumonia Aspiration pneumonia type: unspecified Laterality: bilateral Lung location: unspecified part of lung Qualified Code(s): J69.0 - Pneumonitis due to inhalation of food and vomit (3) Sepsis SNOMED Code(s): 74123313 ICD Code: A41.9 - SEPSIS, UNSPECIFIED ORGANISM Status: Acute Priority: High Qualifiers: Sepsis type: sepsis due to unspecified organism Sepsis acute organ dysfunction status: with acute organ dysfunction Severe sepsis acute organ dysfunction type: acute renal failure Acute renal failure type: unspecified Severe sepsis shock status: without septic shock Qualified Code(s): A41.9 - Sepsis, unspecified organism; R65.20 - Severe sepsis without septic shock; N17.9 - Acute kidney failure, unspecified (4) CAD (coronary artery disease) SNOMED Code(s): 73250297 ICD Code: I25.10 - ATHSCL HEART DISEASE OF [place] CORONARY ARTERY W/O ANG PCTRS Status: Chronic Priority: Medium Qualifiers: Coronary Disease-Associated Artery/Lesion type: [place] artery [place] vs. transplanted heart: [place] heart Associated angina: without angina Qualified Code(s): I25.10 - Atherosclerotic heart disease of [place] coronary artery without angina pectoris (5) Diabetes type 2, controlled SNOMED Code(s): 74743643, 045887060 ICD Code: E11.9 - TYPE 2 DIABETES MELLITUS WITHOUT COMPLICATIONS Status: Chronic Priority: High Qualifiers: Diabetes mellitus computer terminal operator insulin use: with fpc use Diabetes mellitus complication status: with neurologic complications Diabetes mellitus complication detail: with unspecified neuropathy Qualified Code(s): E11.40 - Type 2 diabetes mellitus with diabetic neuropathy, unspecified; Z79.4 - residential (current) use of insulin (6) Essential hypertension SNOMED Code(s): 76167782 ICD Code: I10 - ESSENTIAL (PRIMARY) HYPERTENSION Status: Chronic P riority: Medium (7) Mixed dementia SNOMED Code(s): 02067648980138 ICD Code: G30.9 - ALZHEIMER'S DISEASE, UNSPECIFIED; F01.50 - VASCULAR DEMENTIA WITHOUT BEHAVIORAL DISTURBANCE; F02.80 - DEMENTIA IN OTH DISEASES CLASSD ELSWHR W/O BEHAVRL DISTURB Status: Chronic Priority: High (8) Sepsis with acute hypoxic respiratory failure SNOMED Code(s): 020152841 ICD Code: A41.9 - SEPSIS, UNSPECIFIED ORGANISM; R65.20 - SEVERE SEPSIS WITHOUT SEPTIC SHOCK; J96.01 - ACUTE RESPIRATORY FAILURE WITH HYPOXIA Status: Acute Priority: High Qualifiers: Sepsis type: sepsis due to unspecified organism Severe sepsis shock status: without septic shock Qualified Code(s): A41.9 - Sepsis, unspecified organism; R65.20 - Severe sepsis without septic shock; J96.01 - Acute respiratory failure with hypoxia - Discharge Plan *PRESCRIPTION DRUG MONITORING PROGRAM REVIEWED*: No *COPY OF PRESCRIPTION DRUG MONITORING REPORT IN PATIENT JUVE: No Home Medications: Home Meds Pravastatin [Pravachol] 40 mg PO DAILY 10/28/18 [History] QUEtiapine [SEROquel] 25 mg PO BEDTIME 10/28/18 [History] Acetaminophen 650 mg PO BID 12/30/20 [History] Bisacodyl [Gentle Laxative] 10 mg RC Q24H PRN 12/30/20 [History] Cholecalciferol (Vitamin D3) [Vitamin D3] 2,000 unit PO DAILY 12/30/20 [History] Cyanocobalamin (Vitamin B12) [Vitamin B13] 500 mcg PO DAILY 12/30/20 [History] Docusate Sodium/Sennosides [Senna Plus] 1 tab PO BID 12/30/20 [History] Dulaglutide [Trulicity] 0.75 mg SQ WE 12/30/20 [History] Furosemide [Lasix] 20 mg PO DAILY 12/30/20 [History] Insulin Glarg,Human.Rec.Analog [Lantus] 25 unit SQ DAILY 12/30/20 [History] Magnesium Hydroxide [Milk of Magnesia] 2,400 mg PO DAILY PRN 12/30/20 [History] Melatonin 6 mg PO BEDTIME 12/30/20 [History] Metoprolol Tartrate 12.5 mg PO BID 12/30/20 [History] Mineral Oil/Petrolatum,White [Minerin Creme] 1 applic TOP BID 12/30/20 [History] OLANZapine [ZyPREXA Zydis] 5 mg PO DAILY 12/30/20 [History] OLANZapine [ZyPREXA Zydis] 10 mg PO BEDTIME 12/30/20 [History] Sennosides [Senna] 8.6 mg PO DAILY PRN 12/30/20 [History] amLODIPine Besylate [Amlodipine Besylate] 10 mg PO DAILY 12/30/20 [History] bisacodyL [Bisacodyl] 5 mg PO DAILY PRN 12/30/20 [History] metFORMIN HCl [Metformin HCl] 1,000 mg PO BID 12/30/20 [History] Forms: ED Department Discharge Referrals: Brittni Howard, [Primary Care Provider] - - Discharge Summary/Plan Comment DC Time >30 min.: Yes Total # of Minutes for Discharge Time: 34 Discharge Summary/Plan Comment: Patient seen and rounded on this AM and decision was made to change status to comfort cares due to acute hypoxic respiratory failure due to pneumonia. - General Info Date of Service: 01/02/21 Admission Dx/Problem (Free Text: Due to patients unresponsiveness ROS not able to be obtained Functional Status: Reports: Pain Controlled - Review of Systems General: Reports: Fever - Patient Data Vitals - Most Recent: Last Vital Signs Temp 100.2 F 01/01/21 18:00 Pulse 120 H 01/02/21 06:05 Resp 13 01/02/21 06:05 BP 106/73 01/02/21 06:05 Pulse Ox 90 L 01/02/21 09:22 Weight - Most Recent: 74.4 kg I&O - Last 24 hours: Intake & Output 01/02/21 01/02/21 01/02/21 06:59 14:59 22:59 Intake Total 0 Balance 0 Lab Results - Last 24 hrs: Laboratory Results - last 24 hr 01/02/21 01/02/21 01/02/21 Range/Units 06:15 06:15 06:15 WBC 14.5 H (4.0-10.0) x10^3/uL RBC 4.42 L (4.5-6.0) x10^6/uL Hgb 12.8 L (14.0-18.0) g/dL Hct 38.0 L (40.0-52.0) % MCV 86.0 (78.0-93.0) fL MCH 29.0 (26.0-32.0) pg MCHC 33.7 (32.0-36.0) g/dL RDW Coeff of Ramon 14.9 (10.0-15.0) % Plt Count 209 (130-400) x10^3/uL Immature Gran % (Auto) 0.30 (0.00-0.43) % Neut % (Auto) 85.7 H (50.0-80.0) % Lymph % (Auto) 7.6 L (25.0-50.0) % Gila % (Auto) 6.2 (2.0-11.0) % Eos % (Auto) 0.1 (0.0-4.0) % Baso % (Auto) 0.1 L (0.2-1.2) % Neut # (Auto) 12.4 H (1.8-7.7) x10^3/uL Lymph # (Auto) 1.1 (1.0-4.8) x10^3/uL Gila # (Auto) 0.9 H (0.0-0.8) x10^3/uL Eos # (Auto) 0.0 (0.0-0.5) x10^3/uL Baso # (Auto) 0.0 (0.0-0.2) x10^3/uL Immature Gran # (Auto) 0.04 (0.00-0.07) x10^3/uL Sodium 154 H (136-145) mmol/L Potassium 3.4 L (3.5-5.1) mmol/L Chloride 117 H (98-107) mmol/L Carbon Dioxide 20 L (21-32) mmol/L Anion Gap 20.4 H (5-15) mmol/L BUN 61 H (7-18) mg/dL Creatinine 3.7 H* D (0.70-1.30) mg/dL Est Cr Clr Drug Dosing 17.59 mL/min Estimated GFR (MDRD) 16 Glucose 327 H (70-99) mg/dL POC Glucose (70-99) mg/dL Lactic Acid 1.9 (0.4-2.0) mmol/L Calcium 7.0 L (8.5-10.1) mg/dL Corrected Calcium 8.5 (8.5-10.1) mg/dL Total Bilirubin 0.6 (0.2-1.0) mg/dL AST 19 (15-37) U/L ALT 15 L (16-63) U/L Alkaline Phosphatase 91 (46-116) U/L Total Protein 6.2 L (6.4-8.2) g/dL Albumin 2.1 L (3.4-5.0) g/dL Globulin 4.1 Albumin/Globulin Ratio 0.51 Procalcitonin (0.1-0.50) ng/mL 01/02/21 01/02/21 Range/Units 06:15 08:19 WBC (4.0-10.0) x10^3/uL RBC (4.5-6.0) x10^6/uL Hgb (14.0-18.0) g/dL Hct (40.0-52.0) % MCV (78.0-93.0) fL MCH (26.0-32.0) pg MCHC (32.0-36.0) g/dL RDW Coeff of Ramon (10.0-15.0) % Plt Count (130-400) x10^3/uL Immature Gran % (Auto) (0.00-0.43) % Neut % (Auto) (50.0-80.0) % Lymph % (Auto) (25.0-50.0) % [place]ila % (Auto) (2.0-11.0) % Eos % (Auto) (0.0-4.0) % Baso % (Auto) (0.2-1.2) % Neut # (Auto) (1.8-7.7) x10^3/uL Lymph # (Auto) (1.0-4.8) x10^3/uL [place] # (Auto) (0.0-0.8) x10^3/uL Eos # (Auto) (0.0-0.5) x10^3/uL Baso # (Auto) (0.0-0.2) x10^3/uL Immature Gran # (Auto) (0.00-0.07) x10^3/uL Sodium (136-145) mmol/L Potassium (3.5-5.1) mmol/L Chloride (98-107) mmol/L Carbon Dioxide (21-32) mmol/L Anion Gap (5-15) mmol/L BUN (7-18) mg/dL Creatinine (0.70-1.30) mg/dL Est Cr Clr Drug Dosing mL/min Estimated GFR (MDRD) Glucose (70-99) mg/dL POC Glucose 321 H (70-99) mg/dL Lactic Acid (0.4-2.0) mmol/L Calcium (8.5-10.1) mg/dL Corrected Calcium (8.5-10.1) mg/dL Total Bilirubin (0.2-1.0) mg/dL AST (15-37) U/L ALT (16-63) U/L Alkaline Phosphatase (46-116) U/L Total Protein (6.4-8.2) g/dL Albumin (3.4-5.0) g/dL Globulin Albumin/Globulin Ratio Procalcitonin 13.73 H (0.1-0.50) ng/mL ASHLEE Results - Last 24 hrs: Microbiology 12/30/20 06:17 Aerobic Blood Culture - Preliminary Blood - Venous - Lab Draw NO GROWTH AFTER 3 DAYS Anaerobic Blood Culture - Preliminary NO GROWTH AFTER 3 DAYS 12/30/20 06:13 Aerobic Blood Culture - Preliminary Blood - Venous NO GROWTH AFTER 3 DAYS Anaerobic Blood Culture - Preliminary NO GROWTH AFTER 3 DAYS Med Orders - Current: Current Medications Discontinued Medications Acetaminophen (Acetaminophen 650 Mg Supp) 650 mg RECTAL NOW ONE Stop: 12/30/20 05:51 Last Admin: 12/30/20 06:05 Dose: 650 mg Documented by: Acetaminophen (Acetaminophen 650 Mg Supp) 650 mg RECTAL Q4H PRN PRN Reason: Fever Last Admin: 01/01/21 11:29 Dose: 650 mg Documented by: Albuterol/Ipratropium (Albuterol/Ipratropium 3.0-0.5 Mg/3 Ml Neb Soln) 3 ml NEB Q4HRRT [facility] Last Admin: 01/02/21 19:02 Dose: Not Given Documented by: Albuterol/Ipratropium (Albuterol/Ipratropium 3.0-0.5 Mg/3 Ml Neb Soln) 3 ml NEB Q2H PRN PRN Reason: Dyspnea Last Admin: 12/31/20 16:54 Dose: 3 ml Documented by: Amlodipine Besylate (Amlodipine 5 Mg Tab) 10 mg PO DAILY [facility] Last Admin: 01/02/21 08:09 Dose: Not Given Documented by: Atropine Sulfate (Atropine 1% Ophth Soln 5 Ml Bottle) 0 ml SL Q2H PRN PRN Reason: Copius Secretions Ceftriaxone Sodium (Ceftriaxone 2 Gm Vial) 2 gm IV STAT ONE Stop: 12/30/20 05:47 Last Admin: 12/30/20 06:16 Dose: 2 gm Documented by: Dextrose/Water (50% Dextrose In Water 50 Ml Syringe) 50 ml IVPUSH ASDIRECTED PRN PRN Reason: Hypoglycemia Donepezil HCl (Donepezil 5 Mg Tab) 10 mg PO BEDTIME [facility] Flumazenil (Flumazenil 0.1 Mg/Ml 5 Ml Mdv) 0.2 mg IVPUSH ASDIRECTED PRN PRN Reason: Respiratory Depression Glucagon (Glucagon,Human Recombinant 1 Mg Vial) 1 mg IM ASDIRECTED PRN PRN Reason: Hypoglycemia Heparin Sodium (Porcine) (Heparin Sodium 5,000 Units/Ml Vial) 5,000 units SUBCUT Q8H [facility] Last Admin: 01/02/21 01:34 Dose: 5,000 units Documented by: Hydromorphone HCl (Hydromorphone 1 Mg/Ml Syringe) 1 mg IVPUSH Q4H PRN PRN Reason: Pain Last Admin: 01/02/21 13:46 Dose: 1 mg Documented by: Hydromorphone HCl (Hydromorphone 1 Mg/Ml Syringe) 1 mg IVPUSH Q1H PRN PRN Reason: Pain Last Admin: 01/02/21 17:30 Dose: 1 mg Documented by: Hydromorphone HCl (Hydromorphone 1 Mg/Ml Syringe) 2 mg IVPUSH Q1H PRN PRN Reason: Pain Last Admin: 01/02/21 20:00 Dose: 2 mg Documented by: Sodium Chloride (Normal Saline) 1,000 mls @ 999 mls/hr IV BOLUS ONE; Protocol Stop: 12/30/20 06:46 Last Admin: 12/30/20 05:45 Dose: 999 mls/hr Documented by: Sodium Chloride (Normal Saline) 1,000 mls @ 150 mls/hr IV ASDIRECTED [facility] Last Admin: 12/31/20 11:13 Dose: 150 mls/hr Documented by: Azithromycin 500 mg/ Sodium (Chloride) 250 mls @ 250 mls/hr IV STAT ONE Stop: 12/30/20 09:04 Last Admin: 12/30/20 08:22 Dose: 250 mls/hr Documented by: Piperacillin Sod/Tazobactam (Sod 2.25 gm/ Sodium Chloride) 100 mls @ 25 mls/hr IV Q8H [facility] Last Admin: 01/02/21 02:38 Dose: 25 mls/hr Documented by: Azithromycin 500 mg/ Sodium (Chloride) 250 mls @ 250 mls/hr IV DAILY [facility] Last Admin: 01/02/21 08:08 Dose: 250 mls/hr Documented by: Dextrose/Water (Dextrose 5% In Water) 1,000 mls @ 75 mls/hr IV ASDIRECTED [facility] Last Admin: 01/02/21 03:11 Dose: 75 mls/hr Documented by: Potassium Chloride 20 meq/ (Premix) 50 mls @ 25 mls/hr IV ONETIME ONE Stop: 01/02/21 09:07 Last Admin: 01/02/21 10:57 Dose: Not Given Documented by: Potassium Chloride 20 meq/ (Premix) 50 mls @ 25 mls/hr IV ONETIME ONE Stop: 01/02/21 10:59 Last Admin: 01/02/21 11:02 Dose: 25 mls/hr Documented by: Insulin Glargine (Insulin Glarg,Human.Rec.Analog 100 Unit/Ml) 25 unit SUBCUT DAILY [facility] Last Admin: 01/02/21 08:22 Dose: 25 units Documented by: Lidocaine HCl (Lidocaine 2% Viscous Solution 15 Ml Cup) 5 ml PO Q4H PRN PRN Reason: Pain Lorazepam (Lorazepam 2 Mg/Ml Sdv) 0.5 mg IVPUSH Q4H PRN PRN Reason: Anxiety Last Admin: 01/01/21 17:56 Dose: 0.5 mg Documented by: Lorazepam (Lorazepam 2 Mg/Ml Sdv) 1 mg IVPUSH STAT ONE Stop: 12/31/20 22:18 Last Admin: 12/31/20 22:47 Dose: 1 mg Documented by: Lorazepam (Lorazepam 2 Mg/Ml Sdv) 1 mg IVPUSH Q1H PRN PRN Reason: Anxiety Last Admin: 01/02/21 19:15 Dose: 1 mg Documented by: Metoprolol Succinate (Metoprolol Succinate 25 Mg Tab.Er) 12.5 mg PO DAILY [facility] Last Admin: 01/02/21 08:09 Dose: Not Given Documented by: Morphine Sulfate (Morphine 2 Mg/Ml Syringe) 2 mg IVPUSH ONETIME ONE Stop: 12/31/20 22:19 Last Admin: 12/31/20 22:47 Dose: 2 mg Documented by: Morphine Sulfate (Morphine 2 Mg/Ml Syringe) 2 mg IVPUSH Q2H PRN PRN Reason: Pain Last Admin: 01/01/21 16:59 Dose: 2 mg Documented by: Morphine Sulfate (Morphine 4 Mg/Ml Syringe) 4 mg IVPUSH Q1H PRN PRN Reason: Shortness of Breath Last Admin: 01/01/21 22:17 Dose: 4 mg Documented by: Non-Formulary Medication (Insulin Glargine/Lixisenatide [Soliqua 100 Unit-33 Mcg/Ml Pen]) 30 units SQ DAILY [facility] Ondansetron HCl (Ondansetron 4 Mg/2 Ml Sdv) 4 mg IVPUSH Q4H PRN PRN Reason: Nausea Piperacillin Sod/Tazobactam Sod (Piperacillin/Tazobactam 2.25 Gm Vial) Confirm Administered Dose 2.25 gm .ROUTE .STK-MED ONE Stop: 01/01/21 01:54 Last Admin: 01/01/21 03:16 Dose: Not Given Documented by: Quetiapine Fumarate (Quetiapine 25 Mg Tab) 12.5 mg PO BEDTIME [facility] Last Admin: 01/01/21 20:58 Dose: Not Given Documented by: Quetiapine Fumarate (Quetiapine 25 Mg Tab) 12.5 mg PO TID PRN PRN Reason: Anxiety Sodium Chloride (Sodium Chloride 0.9% 10 Ml Syringe) 10 ml FLUSH ASDIRECTED PRN PRN Reason: Keep Vein Open - Exam Quality Assessment: Reports: Supplemental Oxygen General: Reports: Sedated HEENT: Reports: Pupils Equal Neck: Reports: Supple, Trachea Midline, No JVD Lungs: Reports: Decreased Breath Sounds, Crackles. Denies: Wheezing Cardiovascular: Reports: Regular Rate, Regular Rhythm, Tachycardia GI/Abdominal Exam: Normal Bowel Sounds, Soft Extremities: No Pedal Edema Skin: Reports: Warm, Dry, Intact
--- NOTE | 2021-01-04 14:27 | PCM.EKG ---
#1 Interpretation EKG Date: 12/30/20 Rhythm: Other (tachycardia) [place]: Normal P-Wave: Present QRS: Normal ST-T: Normal QT: Normal
== END 2021-01-02 20:23 | disposition expired | DRG 871 ==
LOC: VM.ED 05:25 → VM.MS 08:12
PROVIDERS: ADMIT Internal Medicine; ATTEND Internal Medicine
DX: A41.9 Sepsis, unspecified organism (principal); A41.89 Other specified sepsis; J69.0 Pneumonitis due to inhalation of food and vomit; E11.9 Type 2 diabetes mellitus without complications; J96.01 Acute respiratory failure with hypoxia; J18.9 Pneumonia, unspecified organism; N17.9 Acute kidney failure, unspecified; E87.0 Hyperosmolality and hypernatremia; R65.20 Severe sepsis without septic shock; I25.10 Atherosclerotic heart disease of native coronary artery without angina pectoris; G30.9 Alzheimer's disease, unspecified; Z51.5 Encounter for palliative care; Z20.822 Contact with and (suspected) exposure to COVID-19; F02.80 Dementia in other diseases classified elsewhere, unspecified severity, without behavioral disturbance, psychotic disturbance, mood disturbance, and anxiety; F01.50 Vascular dementia, unspecified severity, without behavioral disturbance, psychotic disturbance, mood disturbance, and anxiety; E11.42 Type 2 diabetes mellitus with diabetic polyneuropathy; I10 Essential (primary) hypertension; E78.5 Hyperlipidemia, unspecified; Z79.899 Other long term (current) drug therapy; Z79.4 Long term (current) use of insulin; Z87.891 Personal history of nicotine dependence; Z88.7 Allergy status to serum and vaccine; I25.2 Old myocardial infarction; Z98.890 Other specified postprocedural states; Z88.8 Allergy status to other drugs, medicaments and biological substances; Z86.16 Personal history of COVID-19
CPT/HCPCS: 0240U; 36415; 36600; 71045; 80053; 81001; 82803; 82947; 83605; 84145; 85025; 86140; 87040; 87205; 87899; 93005; 94640; 94660; 94760; 99284; A9270-GY; J0456; J0696; J1170; J1644; J1815-GY; J2060; J2270; J2543; J3480; J7030; J7050; J7060; J7620-GY